=== PATIENT | female | born 1950 | race Caucasian/White ===

== ENCOUNTER 2022-05-31 10:40 | Day surgery (SDC) | payer OTHER ==
[2022-05-30 11:32] LABS: COVID AG,FIA SOURCE NASAL SWAB
[~2022-05-31] VITALS: Ht 157.5 cm; Wt 54.5 kg
[~2022-05-31 10:40] MED LIST: ASPI-1450 PO; ATOR20TA86 PO; EMPA10TA3 PO; METF-1211 PO; SODIUM CHLORIDE 0.9% 1,000 ML IV ONE; SODIUM CHLORIDE 0.9% 1,000 ML ONE
[2022-05-31] MEDS ORDERED: LIDOCAINE/PF 2% 5 ML VIAL IM ONE (10:41)
[2022-05-31] MEDS ORDERED: PROPOFOL 1% 20 ML VIAL IVP ONE (10:41)
[2022-05-31 12:41] LABS: GLUCOMETER DEV NAME(LOC) SDS.; GLUCOSE,POINT OF CARE 108 MG/DL (70-110)
== END 2022-05-31 14:15 | disposition home or self-care (01) ==
LOC: SURGERY 10:40
PROVIDERS: ATTEND Internal Medicine Gastroenterology
DX: K63.5 Polyp of colon (principal); K57.30 Diverticulosis of large intestine without perforation or abscess without bleeding; K64.0 First degree hemorrhoids; I10 Essential (primary) hypertension; E11.9 Type 2 diabetes mellitus without complications; Z98.890 Other specified postprocedural states; Z79.899 Other long term (current) drug therapy
CPT/HCPCS: 87426; 45385; 45380; 82962; 88305; C9803; C1769; J2704; J3490; J7030

== ENCOUNTER 2022-09-19 11:06 | Emergency (ER) | payer OTHER ==
[~2022-09-19] VITALS: Ht 154.9 cm; Wt 54.5 kg
[~2022-09-19 11:06] MED LIST changes: -SODIUM CHLORIDE 0.9% 1,000 ML IV ONE; -SODIUM CHLORIDE 0.9% 1,000 ML ONE
[2022-09-19] MEDS ORDERED: PERTUSS(ACELL),DIPH,TET VAC/PF 0.5 ML SYRINGE IM. ONE (12:00)
[2022-09-19] MEDS ORDERED: CEPH-558 PO (13:49)
[2022-09-19 14:10] VITALS: BP 124/80
== END 2022-09-19 14:14 | disposition home or self-care (01) ==
LOC: EMS 11:10
DX: M79.645 Pain in left finger(s) (principal); E11.9 Type 2 diabetes mellitus without complications; I10 Essential (primary) hypertension; Z90.49 Acquired absence of other specified parts of digestive tract
CPT/HCPCS: 90471; 90715; 99283

== ENCOUNTER 2022-11-06 15:42 | Emergency (ER) | payer OTHER ==
[~2022-11-06] VITALS: Ht 154.9 cm; Wt 54.1 kg
[~2022-11-06 15:42] MED LIST changes: +CEPH-558 PO
[2022-11-06 15:49] VITALS: BP 131/78
[2022-11-06 16:17] LABS: COVID AG,FIA SOURCE NASOPHARYNGEAL
[2022-11-06 16:42] LABS: INFLUENZA TYPE A NEGATIVE FOR TYPE A (NEGATIVE); INFLUENZA TYPE B NEGATIVE FOR TYPE B (NEGATIVE)
== END 2022-11-06 17:32 | disposition home or self-care (01) ==
LOC: EMS 15:52
DX: U07.1 COVID-19 (principal); E11.9 Type 2 diabetes mellitus without complications; I10 Essential (primary) hypertension; Z90.49 Acquired absence of other specified parts of digestive tract
CPT/HCPCS: 87804; 99283

== ENCOUNTER 2023-06-23 09:38 | Emergency (ER) | payer OTHER ==
[~2023-06-23] VITALS: Ht 160 cm; Wt 54.1 kg
[~2023-06-23 09:38] MED LIST changes: +ATOR20TA PO; -ATOR20TA86 PO
[2023-06-23] MEDS ORDERED: SODIUM CHLORIDE 0.9% 250 ML IRRIG SOLUTION BOTTLE IRRIG ONE (10:15)
[2023-06-23] MEDS ORDERED: TraMADol HCL 50 MG TABLET PO ONE (10:15)
[2023-06-23] MEDS ORDERED: PERTUSS(ACELL),DIPH,TET VAC/PF 0.5 ML SYRINGE IM. ONE (10:15)
[2023-06-23 12:25] VITALS: BP 158/84; PULSE 72; RESP 18; TEMP 98.6
== END 2023-06-23 12:40 | disposition home or self-care (01) ==
LOC: EMS 09:40
DX: S01.01XA Laceration without foreign body of scalp, initial encounter (principal); E11.9 Type 2 diabetes mellitus without complications; I10 Essential (primary) hypertension; Z90.49 Acquired absence of other specified parts of digestive tract; Z89.022 Acquired absence of left finger(s); W01.198A Fall on same level from slipping, tripping and stumbling with subsequent striking against other object, initial encounter; Y93.89 Activity, other specified; Y92.090 Kitchen in other non-institutional residence as the place of occurrence of the external cause; Y99.8 Other external cause status
CPT/HCPCS: 12002; 82962; 90471; 90715; 99283

== ENCOUNTER 2023-07-24 18:34 | Emergency (ER) | payer OTHER ==
[~2023-07-24] VITALS: Ht 152.4 cm; Wt 54.5 kg
[~2023-07-24 18:34] MED LIST changes: -CEPH-558 PO
[2023-07-24 18:43] VITALS: TEMP 98.1
[2023-07-24 20:48] VITALS: BP 131/66; PULSE 72; RESP 16
== END 2023-07-24 20:50 | disposition home or self-care (01) ==
LOC: EMS 18:34
DX: S00.00XD Unspecified superficial injury of scalp, subsequent encounter (principal); E11.9 Type 2 diabetes mellitus without complications; Z90.49 Acquired absence of other specified parts of digestive tract; Z89.022 Acquired absence of left finger(s); Z48.02 Encounter for removal of sutures; X58.XXXD Exposure to other specified factors, subsequent encounter
CPT/HCPCS: 82962; 99282